=== PATIENT | male | born 1990 | race Caucasian/White ===

== ENCOUNTER 2024-08-12 04:06 | Emergency (ER) | payer SELFPAY ==
[2024-08-12] MEDS ORDERED: NA CHLORIDE 0.9% 1,000 ML ONE (04:28)
[2024-08-12] MEDS ORDERED: MORPHINE 4 MG/ML SYR ONE (04:28)
[2024-08-12] MEDS ORDERED: ONDANSETRON 4 MG/2 ML VIAL ONE (04:28)
[2024-08-12] MEDS ORDERED: KETOROLAC 30 MG/ML INJ ONE (04:28)
[2024-08-12 04:55] LABS: Absolute Basophils 0.1 K/uL (0-0.5); Absolute Eosinophils 0.3 K/uL (0-0.5); Absolute Monocytes 0.8 K/uL (0.1-1.3); Absolute Neutrophil 5.8 K/uL (1.8-8.0); Basophils % 1.1 % (0-1.3); Hematocrit 47.1 % (39.6-49.0); MCH 30.6 pg (27.0-35.0); MPV 8.2 fL (7.6-11.3); Monocytes % 7.5 % (3.3-12.3); Neutrophils % 52.4 % (41.7-73.7); Nucleated Red Blood Cells % 0.1 % (0-0); Platelets 445 thou/uL (152-406); RBC Red Blood Cell Count 5.23 M/uL (4.33-5.43); Red Cell Distribution Width 13.2 % (12.1-15.2)
[2024-08-12] MEDS ORDERED: methocarbamoL 750 MG TAB ONE (05:00)
[2024-08-12 05:20] LABS: Albumin 3.8 g/dL (3.4-5.0); Albumin/Globulin Ratio 0.9 (1.1-1.8); Anion Gap 5.9 mEq/L (5.0-15.0); Bilirubin Total 0.5 mg/dL (0.2-1.0); Globulin 4.3 g/dL (2.3-3.5); Potassium 3.9 mEq/L (3.5-5.1); Protein, Total 8.1 g/dL (6.4-8.2)
[2024-08-12 05:23] LABS: Blood Morphology Comment NOT SEEN (NOT SEEN); Platelet Estimate ADEQ; White Blood Cell Scan OK (OK)
[2024-08-12 05:37] LABS: Sqamous Epithelial None Seen /HPF (None Seen); Urine Bacteria None Seen /HPF (<20); Urine Bilirubin NEGATIVE (Negative); Urine Blood Negative (Negative); Urine Clarity Clear (Clear); Urine Color Light-Yellow (Yellow); Urine Culture Reflex Order NOT NEEDED; Urine Glucose NEGATIVE (Negative); Urine Ketones NEGATIVE (Negative); Urine Microscopic Reflex YN ORDER UMIC; Urine Mucus Slight /HPF (None Seen); Urine Nitrite NEGATIVE (Negative); Urine Protein NEGATIVE (Negative); Urine RBC None Seen /HPF (None Seen); Urine Urobilinogen Normal (Normal); Urine WBC <5 /HPF (<5)
--- NOTE | 2024-08-12 05:47 | RAD REPORT ---
EXAM DESCRIPTION: Abdomen Pelvis Wo Contrast CLINICAL HISTORY: back pain COMPARISON: December 14, 2023 TECHNIQUE: Contiguous axial sections of the abdomen and pelvis were obtained without intravenous contrast. This exam was performed according to our departmental dose-optimization program, which includes automated exposure control, adjustment of the mA and/or kV according to patient size and/or use of it erative reconstruction technique. FINDINGS: Lower Chest: The imaged lung bases are clear. No pleural or pericardial effusion. Organs: The liver, spleen, gallbladder, pancreas, and adrenal glands are normal. The kidneys are inta ct. 2 mm nonobstructing right renal mid pole calculus. GI/Bowel: There are no findings of small bowel obstruction. Nonspecific fecalization of the distal sm all bowel. This may reflect sequela of slow transit. No associated wall thickening or surrounding inflammatory change. No acute bowel wall inflammatory changes. The appendix is normal. Pelvis: The bladder is normal. The rectum is normal. No pelvic free fluid. No pelvic lymphadenopathy. Peritoneum/Retroperitoneum: No intraperitoneal free air. No intraperitoneal free fluid. No mesenteric or retroperitoneal lymphadenopathy. Bones/Soft Tissues: There are no suspicious-appearing lytic or blastic osseous lesions. IMPRESSION: 1. No acute intra-abdominal or pelvic abnormality. 2. Nonobstructing right renal calculus. 3. Fecalization of the distal small bowel. This may reflect sequela of slow transit. No features of small bowel obstruction. RECOMMENDATIONS: Electronically signed by: Gee Zarate MD 08/12/2024 05:40 AM [facility] Due to temporary technical issues with the [employer] reporting system, reports are being anila d by the in-house radiologist without review as a courtesy to ensure prompt reporting the interpreting radiologist is fully responsible for the content of the report. Transcribed Date/Time: 08/12/2024 5:47 AM
--- NOTE | 2024-08-12 06:33 | EDPHYS ---
Physician Documentation [facility] Name: Rohan Lenz Age: 33 yrs Sex: Male : 1990 Arrival Date: 08/12/2024 Time: 04:06 Bed 6 Private MD: ED Physician Henrry Schumacher HPI: 08/12 04:09 This 33 yrs old Male presents to ER via Unassigned with complaints of Back sp4 Pain. 08/13 01:08 Patient presents with 2 weeks of midthoracic back pain. sp4 Historical: - Allergies: 08/12 04:41 Codeine; bm8 - Home Meds: 04:41 Unable to obtain [Active]; bm8 - PMHx: 04:41 Seizure; bm8 - PSHx: 04:41 None; bm8 - Immunization history:: Adult Immunizations up to date. - Infectious Disease History:: Denies. - Social history:: Smoking status: Patient reports the use of cigarette tobacco products, denies chronic smoking, but will smoke occasionally. - Family history:: not pertinent. ROS: 08/13 01:08 Constitutional: Negative for fever, chills, and weight loss, positive for midthoracic sp4 back pain All other systems are negative, Exam: 01:08 Constitutional: This is a well developed, well nourished patient who is awake, alert, sp4 and in no acute distress. Head/Face: Normocephalic, atraumatic. Eyes: Pupils equal round and reactive to light, extra-ocular motions intact. Lids and lashes normal. Conjunctiva and sclera are not injected. Cornea within normal limits. Periorbital areas with no swelling, redness, or edema. ENT: Nares patent. No nasal discharge, no septal abnormalities noted. Tympanic membranes are normal and external auditory canals are clear. Oropharynx with no redness, swelling, or masses, exudates, or evidence of obstruction, uvula midline. Mucous membranes moist. Neck: Trachea midline, no thyromegaly or masses palpated, and no cervical lymphadenopathy. Supple, full range of motion without nuchal rigidity, or vertebral point tenderness. Chest/axilla: Normal chest wall appearance and motion. Nontender with no deformity. No lesions are appreciated. Cardiovascular: Regular rate and rhythm with a normal S1 and S2. No gallops, murmurs, or rubs. Normal PMI, no JVD. No pulse deficits. Respiratory: Lungs have equal breath sounds bilaterally, clear to auscultation and percussion. No rales, rhonchi or wheezes noted. No increased work of breathing, no retractions or nasal flaring. Abdomen/GI: Soft, with normal bowel sounds. No distension or tympany. No guarding or rebound. No evidence of tenderness throughout. Back: No spinal tenderness. No costovertebral tenderness. Skin: Warm, dry with normal turgor. Normal color with no rashes, no lesions, and no evidence of cellulitis. MS/ Extremity: Pulses equal, no cyanosis. Neurovascular intact. Full, normal range of motion. Neuro: Awake and alert, GCS 15, oriented to person, place, time, and situation. Cranial nerves II-XII grossly intact. Motor strength 5/5 in all extremities. Sensory grossly intact. Psych: Awake, alert, with orientation to person, place and time. Behavior, mood, and affect are within normal limits Vital Signs: 08/12 04:15 BP 138 / 89; Pulse 81; Resp 19; Temp 98.7; Pulse Ox 99% ; Weight 86.18 kg; Height 6 ft. bm8 0 in. ; Pain 6/10; 04:53 BP 122 / 86; Pulse 69; Resp 17; Temp 98.7; Pulse Ox 96% ; Pain 0/10; bm8 06:09 BP 124 / 78; Pulse 53; Resp 14; Temp 98.7; Pulse Ox 97% ; Pain 0/10; bm8 04:15 Body Mass Index 25.77 (86.18 kg, 182.88 cm) bm8 04:15 Pain Scale: Adult bm8 04:53 Pain Scale: Adult bm8 06:09 Pain Scale: Adult bm8 Tacos Coma Score: 04:53 Eye Response: spontaneous(4). Motor Response: obeys commands(6). Verbal Response: bm8 oriented(5). Total: 15. 06:09 Eye Response: spontaneous(4). Motor Response: obeys commands(6). Verbal Response: bm8 oriented(5). Total: . 08/13 01:08 Eye Response: spontaneous(4). Motor Response: obeys commands(6). Verbal Response: sp4 oriented(5). Total: 15. MDM: 08/12 04:35 Medical Screening Exam initiated sp4 06:11 ED course: COMPARISON: December 14, 2023 TECHNIQUE: Contiguous axial sections of the abdomen sp4 and pelvis were obtained without intravenous contrast. This exam was performed according to our departmental dose-optimization program, which includes automated exposure control, adjustment of the mA and/or kV according to patient size and/or use of iterative reconstruction technique. FINDINGS: Lower Chest: The imaged lung bases are clear. No pleural or pericardial effusion. Organs: The liver, spleen, gallbladder, pancreas, and adrenal glands are normal. The kidneys are intact. 2 mm nonobstructing right renal mid pole calculus. GI/Bowel: There are no findings of small bowel obstruction. Nonspecific fecalization of the distal small bowel. This may reflect sequela of slow transit. No associated wall thickening or surrounding inflammatory change. No acute bowel wall inflammatory changes. The appendix is normal. Pelvis: The bladder is normal. The rectum is normal. No pelvic free fluid. No pelvic lymphadenopathy. Peritoneum/Retroperitoneum: No intraperitoneal free air. No intraperitoneal free fluid. No mesenteric or retroperitoneal lymphadenopathy. Bones/Soft Tissues: There are no suspicious-appearing lytic or blastic osseous lesions. IMPRESSION: 1. No acute intra-abdominal or pelvic abnormality. 2. Nonobstructing right renal calculus. 3. Fecalization of the distal small bowel. This may reflect sequela of slow transit. No features of small bowel obstruction. . 08/13 01:08 Differential diagnosis: arthritis, Cholelithiasis Fatigue Fracture. Data reviewed: sp4 vital signs, nurses notes, lab test result(s), radiologic studies, CT scan. Consideration of Admission/Observation Escalation of care including admission/observation considered. ED course: Patient stable for discharge home CAT scan is negative.. 08/12 04:22 Order name: CBC with Diff; Complete Time: 06:12 sp4 08/12 04:22 Order name: CMP; Complete Time: 06:12 sp4 08/12 04:22 Order name: Lipase; Complete Time: 06:12 sp4 08/12 04:22 Order name: Urinalysis w/ reflexes; Complete Time: 06:12 sp4 08/12 05:01 Order name: CBC Smear Scan; Complete Time: 06:12 EDMS 08/12 04:22 Order name: CT Abd/Pelvis - Without Contrast sp4 08/12 04:22 Order name: IV Saline Lock; Complete Time: 04:36 sp4 08/12 04:22 Order name: Labs collected and sent; Complete Time: 04:36 sp4 Administered Medications: 08/12 04:35 Drug: TORadol - Ketorolac IVP 15 mg IVP once Route: IVP; Site: left antecubital; bm8 04:56 Follow up: Response: No adverse reaction bm8 04:35 Drug: Ondansetron IVP 4 mg IVP once; over 2 minutes Route: IVP; Site: left antecubital; bm8 04:56 Follow up: Response: No adverse reaction bm8 04:35 Drug: morphine IVP or IV 4 mg IVP once over 4 mins Route: IVP; Infused Over: 4 mins; bm8 Site: left antecubital; 04:56 Follow up: Response: No adverse reaction bm8 04:35 Drug: NS 0.9% IV 1000 ml IV at 1 bolus Per protocol; to be given as a bolus over 60 bm8 minutes Route: IV; Rate: 1 bolus; Site: left antecubital; 06:00 Follow up: Response: No adverse reaction; IV Status: Completed infusion; IV Intake: bm8 1000ml 04:56 Drug: Ketorolac IVP 15 mg IVP once Route: IVP; Site: left antecubital; bm8 04:57 Follow up: Response: No adverse reaction bm8 05:00 Drug: Methocarbamol PO 1500 mg PO once Route: PO; bm8 06:00 Follow up: Response: No adverse reaction bm8 Disposition Summary: 08/12/24 06:32 Discharge Ordered Notes: Location: Home sp4 Problem: new sp4 Symptoms: have improved sp4 Condition: Stable sp4 Diagnosis - Low back pain sp4 - Acute midthoracic back pain sp4 Followup: sp4 - With: Private Physician - When: 7 - 10 days - Reason: Recheck today's complaints Discharge Instructions: - Acute Back Pain, Adult sp4 - Discharge Summary Sheet dd2 Forms: - Patient Portal Instructions sp4 - Work release form dd2 Prescriptions: - Ibuprofen 800 mg Oral Tablet - take 1 tablet ORAL route every 8 hours As needed take with food; 30 tablet; sp4 Refills: 0, Product Selection Permitted - Tramadol 50 mg Oral tablet - take 1 tablet ORAL route every 8 hours as needed; 20 tablet; Refills: 0, sp4 Product Selection Permitted - methocarbamol 750 mg Oral tablet - take 2 tablets ORAL route every 6 hours for 2 days PRN back pain; 60 tablet; sp4 Refills: 0, Product Selection Permitted Signatures: Dispatcher [employer] EDMS Henrry Schumacher MD MD sp4 Miguel Houser RN RN bm8 Corrections: (The following items were deleted from the chart) 04:23 04:22 CBC+H.LAB.BRZ ordered. EDMS EDMS 04:23 04:22 COMPREHENSIVE METABOLIC PANEL+C.LAB.BRZ ordered. EDMS EDMS 04:23 04:22 LIPASE+C.LAB.BRZ ordered. EDMS EDMS 04:23 04:22 Urinalysis+U.LAB.BRZ ordered. EDMS EDMS 04:23 04:23 Abdomen Pelvis Wo Con+CT.RAD.BRZ ordered. EDMS EDMS 04:42 04:41 Allergies: No Known Allergies; bm8 bm8
--- NOTE | 2024-08-12 06:33 | ER ---
Nurse's Notes [facility] Name: Rohan Lenz Age: 33 yrs Sex: Male : 1990 Arrival Date: 08/12/2024 Time: 04:06 Bed 6 Private MD: Diagnosis: Low back pain;Acute midthoracic back pain Presentation: 08/12 04:15 Chief complaint: Patient states: I have been having mid level back for about a week and bm8 it just started out of nowhere. 04:15 Coronavirus screen: Vaccine status: Patient reports receiving the 2nd dose of the covid bm8 vaccine. At this time, the client does not indicate any symptoms associated with coronavirus-19. Ebola Screen: Patient negative for fever greater than or equal to 101.5 degrees Fahrenheit, and additional compatible Ebola Virus Disease symptoms Patient denies exposure to infectious person. Patient denies travel to an Ebola-affected area in the 21 days before illness onset. No symptoms or risks identified at this time. Initial Sepsis Screen: Does the patient meet any 2 criteria? No. Patient's initial sepsis screen is negative. Does the patient have a suspected source of infection? No. Patient's initial sepsis screen is negative. Risk Assessment: Do you want to hurt yourself or someone else? Patient reports no desire to harm self or others. Onset of symptoms was August 05, 2024. 04:15 Method Of Arrival: Ambulatory bm8 04:15 Acuity: ROSA 3 bm8 Triage Assessment: 04:15 General: Appears in no apparent distress. comfortable, Behavior is calm, cooperative, bm8 appropriate for age. 04:15 Pain: Complains of pain in mid back area Pain currently is 6 out of 10 on a pain scale. bm8 at worst was 9 out of 10 on a pain scale. EENT: No signs and/or symptoms were reported regarding the EENT system. Neuro: Level of Consciousness is awake, alert, obeys commands, Oriented to person, place, time, situation, Appropriate for age. Cardiovascular: Denies chest pain, Capillary refill < 3 seconds in bilateral fingers Patient's skin is warm and dry. Respiratory: Airway is patent Respiratory effort is even, unlabored, Respiratory pattern is regular, symmetrical. GI: No signs and/or symptoms were reported involving the gastrointestinal system. : No signs and/or symptoms were reported regarding the genitourinary system. Derm: No signs and/or symptoms reported regarding the dermatologic system. Musculoskeletal: Circulation, motion, and sensation intact. Capillary refill < 3 seconds, in bilateral fingers. Reports pain in mid back area. Historical: - Allergies: 04:41 Codeine; bm8 - Home Meds: 04:41 Unable to obtain [Active]; bm8 - PMHx: 04:41 Seizure; bm8 - PSHx: 04:41 None; bm8 - Immunization history:: Adult Immunizations up to date. - Infectious Disease History:: Denies. - Social history:: Smoking status: Patient reports the use of cigarette tobacco products, denies chronic smoking, but will smoke occasionally. - Family history:: not pertinent. Screenin:53 [facility] ED Fall Risk Assessment (Adult) History of falling in the last 3 months, bm8 including since admission No falls in past 3 months (0 pts) Confusion or Disorientation No (0 pts) Intoxicated or Sedated No (0 pts) Impaired Gait No (0 pts) Mobility Assist Device Used No (0 pt) Altered Elimination No (0 pt) Score/Fall Risk Level 0 - 2 = Low Risk Oriented to surroundings, Maintained a safe environment, Educated pt \T\ family on fall prevention, incl call for assistance when getting out of bed, Assessed \T\ reinforced patient's understanding of fall precautions, Hourly rounding (assess needs \T\ fall precautionary measures) done, Used ambulatory aids as needed (educated on \T\ assisted with), Used gait belt as appropriate. Abuse screen: Denies threats or abuse. Nutritional screening: No deficits noted. Tuberculosis screening: No symptoms or risk factors identified. Assessment: 04:52 Reassessment: see triage note. Neuro: No deficits noted. Level of Consciousness is bm8 awake, alert, obeys commands, Oriented to person, place, time, situation, Appropriate for age [employer] Supervisor are equal bilaterally Moves all extremities. Full function Gait is steady, Speech is normal, Facial symmetry appears normal, Pupils are PERRLA, Denies weakness headache. 06:09 Reassessment: Patient appears in no apparent distress at this time. Patient and/or bm8 family updated on plan of care and expected duration. Pain level reassessed. Patient is alert, oriented x 3, equal unlabored respirations, skin warm/dry/pink. Patient denies pain at this time. Patient states feeling better. Patient states symptoms have improved. Vital Signs: 04:15 BP 138 / 89; Pulse 81; Resp 19; Temp 98.7; Pulse Ox 99% ; Weight 86.18 kg; Height 6 ft. bm8 0 in. ; Pain 6/10; 04:53 BP 122 / 86; Pulse 69; Resp 17; Temp 98.7; Pulse Ox 96% ; Pain 0/10; bm8 06:09 BP 124 / 78; Pulse 53; Resp 14; Temp 98.7; Pulse Ox 97% ; Pain 0/10; bm8 04:15 Body Mass Index 25.77 (86.18 kg, 182.88 cm) bm8 04:15 Pain Scale: Adult bm8 04:53 Pain Scale: Adult bm8 06:09 Pain Scale: Adult bm8 Tacos Coma Score: 04:53 Eye Response: spontaneous(4). Motor Response: obeys commands(6). Verbal Response: bm8 oriented(5). Total: 15. 06:09 Eye Response: spontaneous(4). Motor Response: obeys commands(6). Verbal Response: bm8 oriented(5). Total: 15. 0117 01:08 Eye Response: spontaneous(4). Motor Response: obeys commands(6). Verbal Response: sp4 oriented(5). Total: 15. ED Course: 08/12 04:08 Patient arrived in ED. [email or web address] 04:09 Henrry Schumacher MD is Attending Physician. sp4 04:15 Arm band placed on right wrist. bm8 04:26 Miguel Houser, RN is Primary Nurse. bm8 04:41 Triage completed. bm8 04:44 CT Abd/Pelvis - Without Contrast In Process Unspecified. EDMS 04:44 No provider procedures requiring assistance completed. Initial lab(s) drawn, by yessneia driscoll sent to lab. EKG done, by ED staff, reviewed by Henrry Schumacher MD. Inserted saline lock: 20 gauge in left antecubital area, using aseptic technique. Blood collected. Flushed with 10 mL NS. Patient maintains SpO2 saturation greater than 95% on room air. 04:53 Patient has correct armband on for positive identification. Placed in gown. Bed in low bm8 position. Call light in reach. Side rails up X 1. Client placed on continuous cardiac and pulse oximetry monitoring. NIBP monitoring applied. Pulse ox on. NIBP on. Door closed. Noise minimized. Warm blanket given. Pillow given. 06:09 Provided Education on: post er care. bm8 06:09 IV discontinued, intact, bleeding controlled, No redness/swelling at site. Pressure bm8 dressing applied. Administered Medications: 04:35 Drug: TORadol - Ketorolac IVP 15 mg IVP once Route: IVP; Site: left antecubital; bm8 04:56 Follow up: Response: No adverse reaction bm8 04:35 Drug: Ondansetron IVP 4 mg IVP once; over 2 minutes Route: IVP; Site: left antecubital; bm8 04:56 Follow up: Response: No adverse reaction bm8 04:35 Drug: morphine IVP or IV 4 mg IVP once over 4 mins Route: IVP; Infused Over: 4 mins; bm8 Site: left antecubital; 04:56 Follow up: Response: No adverse reaction bm8 04:35 Drug: NS 0.9% IV 1000 ml IV at 1 bolus Per protocol; to be given as a bolus over 60 bm8 minutes Route: IV; Rate: 1 bolus; Site: left antecubital; 06:00 Follow up: Response: No adverse reaction; IV Status: Completed infusion; IV Intake: bm8 1000ml 04:56 Drug: Ketorolac IVP 15 mg IVP once Route: IVP; Site: left antecubital; bm8 04:57 Follow up: Response: No adverse reaction bm8 05:00 Drug: Methocarbamol PO 1500 mg PO once Route: PO; bm8 06:00 Follow up: Response: No adverse reaction bm8 Medication: 04:53 VIS not applicable for this client. bm8 Intake: 06:00 IV: 1000ml; Total: 1000ml. bm8 Outcome: 06:32 Discharge ordered by MD. guzman 06:46 Discharged to home ambulatory, bm8 06:46 Condition: stable 06:46 Discharge instructions given to patient, Instructed on discharge instructions, follow up and referral plans. no drinking with medication, no driving heavy equipment, medication usage, Demonstrated understanding of instructions, follow-up care, medications, Prescriptions given X 3, 06:50 Patient left the ED. bm8 Signatures: Dispatcher [employer] Franci Nguyễn [email or web address] Henrry Schumacher MD MD sp4 Miguel Houser RN RN bm8 Corrections: (The following items were deleted from the chart) 04:42 04:41 Allergies: No Known Allergies; bm8 bm8
[2024-08-13 02:45] VITALS: BP 124/78; TEMP 98.7; O2SAT 97
== END 2024-08-12 06:50 | disposition home or self-care (01) ==
LOC: ER 04:06
DX: M54.50 Low back pain, unspecified (principal); M54.9 Dorsalgia, unspecified
CPT/HCPCS: 36415; 74176; 80053; 81001; 83690; 85025; 96361; 96374; 96375; 99285; J2405; J7030

== ENCOUNTER 2025-03-15 16:47 | Emergency (ER) | payer SELFPAY ==
[2025-03-15] MEDS ORDERED: LORazepam 2 MG/ML VIAL ONE (17:24)
[2025-03-15] MEDS ORDERED: KETOROLAC 30 MG/ML INJ ONE (17:25)
[2025-03-15] MEDS ORDERED: ONDANSETRON 4 MG/2 ML VIAL ONE (17:25)
[2025-03-15] MEDS ORDERED: NA CHLORIDE 0.9% 1,000 ML ONE (17:25)
[2025-03-15 17:35] LABS: Absolute Lymphocytes (CBC) 3.4 K/uL (0.7-4.9); Hematocrit 44.4 % (39.6-49.0); Hemoglobin 15.5 g/dL (13.6-17.9); MCH 31.0 pg (27.0-35.0); MCHC 34.8 g/dL (32.0-36.0); MCV 88.9 fL (80-100); MPV 7.9 fL (7.6-11.3); Nucleated RBC Absolute Count 0.0 (0-0); Nucleated Red Blood Cells % 0.1 % (0-0); RBC Red Blood Cell Count 4.99 M/uL (4.33-5.43); White Blood Count 8.30 thou/uL (4.3-10.9)
[2025-03-15 17:55] LABS: Anion Gap 7.4 mEq/L (5.0-15.0); BUN Blood Urea Nitrogen 13.0 mg/dL (7-18); Glucose Level 125.0 mg/dL (74-106); Potassium 3.4 mEq/L (3.5-5.1); Troponin High Sensitivity 4.8 pg/mL (<58.9)
--- NOTE | 2025-03-15 18:32 | RAD REPORT ---
EXAM: CT brain without contrast HISTORY: SEIZURE COMPARISON: None TECHNIQUE: Multiple contiguous axial images were obtained and a CT of the brain without contrast. Sag ittal and coronal reformats were performed. One or more of the following dose reduction techniques were used: Automated exposure control, adjust ment of the mA and/or kV according to patient size, and/or iterative reconstruction. FINDINGS: No evidence of hydrocephalus, intracranial hemorrhage, or extra-axial fluid collection. There is a large fatty mass in the left temporal lobe with associated calcifications measuring 2.6 c m. There is adjacent hypodensity measuring 19 mm. No evidence of midline shift or areas of brain edema. The calvarium is intact. The visualized paranasal sinuses and mastoid air cells are essentially clear . IMPRESSION: No evidence of acute intracranial abnormality. Fatty mass with calcifications and adjacent intraparenchymal hypodensity in the left temporal lobe. T his is presumed to to be possible seizure focus. Recommend neurology consultation on a nonemergent basis. MRI brain epilepsy protocol may be considered for follow-up imaging on a nonemergent basis.
--- NOTE | 2025-03-15 19:07 | ER ---
Nurse's Notes [facility] Name: Rohan Lenz Age: 34 yrs Sex: Male : 1990 Arrival Date: 03/15/2025 Time: 16:47 Bed 14 Private MD: Diagnosis: Localization-related (focal) (partial) idiopathic epilepsy and epileptic syndromes with seizures of localized onset Presentation: 03/15 17:02 Chief complaint: Patient states: HE HAD A SEIZURE AROUND 1PM. SPOUSE REPORTS LASTED 5 dd2 MINS. PT STATES HX OF EPILEPSY, OFF MEDS X5 YEARS, SMOKES CANNABIS INSTEAD. PT REPORTS HEADACHE. Coronavirus screen: At this time, the client does not indicate any symptoms associated with coronavirus-19. Ebola Screen: No symptoms or risks identified at this time. Initial Sepsis Screen: Does the patient meet any 2 criteria? No. Patient's initial sepsis screen is negative. Does the patient have a suspected source of infection? No. Patient's initial sepsis screen is negative. Risk Assessment: Do you want to hurt yourself or someone else? Patient reports no desire to harm self or others. Onset of symptoms was March 15, 2025 at 13:00. 17:02 Method Of Arrival: Ambulatory dd2 17:02 Acuity: ROSA 3 dd2 Triage Assessment: 17:04 General: Appears in no apparent distress. uncomfortable, Behavior is calm, cooperative, dd2 appropriate for age. Pain: Complains of pain in HEAD. Neuro: Level of Consciousness is awake, alert, obeys commands, Oriented to person, place, time, situation, Appropriate for age Reports headache Seizure activity reported prior to arrival. Seizure lasted approximately 5 minutes. Historical: - Allergies: 17:04 Codeine; dd2 - PMHx: 17:04 Seizure; dd2 - PSHx: 17:04 None; dd2 - Immunization history:: Adult Immunizations unknown. - Infectious Disease History:: Denies. - Social history:: Smoking status: Reported history of juuling and/or vaping. Patient uses street drugs, marijuana. Screenin:11 [facility] ED Fall Risk Assessment (Adult) History of falling in the last 3 months, lg3 including since admission No falls in past 3 months (0 pts) Confusion or Disorientation No (0 pts) Intoxicated or Sedated No (0 pts) Impaired Gait No (0 pts) Mobility Assist Device Used No (0 pt) Altered Elimination No (0 pt) Score/Fall Risk Level 0 - 2 = Low Risk Oriented to surroundings, Maintained a safe environment, Educated pt \T\ family on fall prevention, incl call for assistance when getting out of bed, Assessed \T\ reinforced patient's understanding of fall precautions. Abuse screen: Denies threats or abuse. Denies injuries from another. Nutritional screening: No deficits noted. Tuberculosis screening: No symptoms or risk factors identified. Assessment: 17:15 General: Appears in no apparent distress. comfortable, Behavior is calm, cooperative, jb4 appropriate for age. Pain: Complains of pain in headache Pain does not radiate. Pain currently is 5 out of 10 on a pain scale. Neuro: Level of Consciousness is awake, alert, obeys commands, Oriented to person, place, time, situation. Cardiovascular: Patient's skin is warm and dry. Respiratory: Airway is patent Respiratory effort is even, unlabored, Respiratory pattern is regular, symmetrical. Derm: Skin is intact, Skin is pink, warm \T\ dry. Musculoskeletal: Circulation, motion, and sensation intact. Range of motion: intact in all extremities. 18:15 Reassessment: Patient appears in no apparent distress at this time. Patient and/or jb4 family updated on plan of care and expected duration. Pain level reassessed. Patient is alert, oriented x 3, equal unlabored respirations, skin warm/dry/pink. PT to CT. 19:22 General: Appears in no apparent distress. comfortable, Behavior is calm, cooperative. lg3 Pain: Denies pain. Neuro: No deficits noted. [place] Agitation-Sedation Scale (RASS): 0 - Alert and Calm Level of Consciousness is awake, alert, obeys commands, Oriented to person, place, time, situation. Respiratory: No deficits noted. Airway is patent Respiratory effort is even, unlabored, Respiratory pattern is regular, symmetrical. Vital Signs: 17:02 BP 130 / 90; Pulse 70; Resp 17; Temp 97.9; Pulse Ox 98% on R/A; Weight 86.18 kg; Height dd2 6 ft. 0 in. ; Pain 5/10; 18:16 BP 108 / 68; Pulse 55; Resp 16; Pulse Ox 97% on R/A; jb4 19:11 BP 100 / 66; Pulse 59; Resp 15 S; Pulse Ox 98% on R/A; lg3 17:02 Body Mass Index 25.77 (86.18 kg, 182.88 cm) dd2 17:02 Pain Scale: Adult dd2 [place] Coma Score: 17:04 Eye Response: spontaneous(4). Motor Response: obeys commands(6). Verbal Response: dd2 oriented(5). Total: 15. ED Course: 16:49 Patient arrived in ED. cj3 16:50 Kaitlyn Ace MD is Attending Physician. sp3 17:04 Triage completed. dd2 17:04 Arm band placed on right wrist. dd2 17:10 Alan Shine, SNOUT PULLER-C is PHCP. dr5 17:30 Inserted saline lock: 18 gauge in right antecubital area, using aseptic technique. ts3 Blood collected. Flushed with 10 mL NS. 17:31 Initial lab(s) drawn, by stucco laborer, sent to lab. ts3 17:31 EKG done, by technical services assistant. ts3 18:12 Homar Bender, RN is Primary Nurse. jb4 18:23 CT Head Brain wo Cont In Process Unspecified. EDMS 19:06 Clem Castro MD is Referral Physician. dr5 19:11 Patient has correct armband on for positive identification. Bed in low position. Client lg3 placed on continuous cardiac and pulse oximetry monitoring. NIBP monitoring applied. Family accompanied patient. 19:11 No provider procedures requiring assistance completed. IV discontinued, intact, lg3 bleeding controlled, No redness/swelling at site. Pressure dressing applied. Administered Medications: 17:32 Drug: Ativan IVP 1 mg IVP once Route: IVP; Site: right antecubital; af3 19:13 Follow up: Response: No adverse reaction; RASS: Drowsy (-1) lg3 17:32 Drug: Ketorolac IVP 15 mg IVP once Route: IVP; Site: right antecubital; af3 19:13 Follow up: Response: No adverse reaction lg3 17:32 Drug: Ondansetron IVP 4 mg IVP once; over 2 minutes Route: IVP; Site: right antecubital;af3 19:13 Follow up: Response: No adverse reaction lg3 17:33 Drug: NS 0.9% IV 1000 ml IV at 1000 ml once; to be given as a bolus over 60 minutes af3 Route: IV; Rate: 1000 ml; Site: right antecubital; 19:13 Follow up: Response: No adverse reaction; IV Status: Completed infusion; IV Intake: lg3 1000ml Medication: 19:11 VIS not applicable for this client. lg3 Intake: 19:13 IV: 1000ml; Total: 1000ml. lg3 Outcome: 19:06 Discharge ordered by . dr5 19:22 Discharged to home via wheelchair, with significant other, lg3 19:22 Condition: stable 19:22 Discharge instructions given to patient, Instructed on discharge instructions, follow up and referral plans. Demonstrated understanding of instructions, follow-up care, 19:22 Patient left the ED. lg3 Signatures: Dispatcher [employer] EDMS Homar Bender RN TAMIKO jb4 Mikaela Bocanegra RN RN lg3 Kaitlyn Ace MD MD sp3 Bria Garcia RN RN af3 BALTA MARTINEZ RN RN dd2 Alan Shine, SNOUT PULLER-C SNOUT PULLER-Cdr5 Fide Haines cj3 Kim Oshea ts3 Corrections: (The following items were deleted from the chart) 18:16 18:13 General: Appears in no apparent distress. comfortable, Behavior is calm, jb4 cooperative, appropriate for age, jb4 18:16 18:13 Pain: Complains of pain in headache Pain does not radiate. Pain currently is 5 jb4 out of 10 on a pain scale. jb4 18:16 18:13 Neuro: Level of Consciousness is awake, alert, obeys commands, Oriented to jb4 person, place, time, situation, jb4 18:16 18:13 Cardiovascular: Patient's skin is warm and dry. jb4 jb4 18:16 18:13 Respiratory: Airway is patent Respiratory effort is even, unlabored, Respiratory jb4 pattern is regular, symmetrical, jb4 18:16 18:13 Derm: Skin is intact, Skin is pink, warm \T\ dry. jb4 jb4 18:16 18:13 Musculoskeletal: Circulation, motion, and sensation intact. Range of motion: jb4 intact in all extremities, jb4
--- NOTE | 2025-03-15 19:07 | EDPHYS ---
Physician Documentation [facility] Name: Rohan Lenz Age: 34 yrs Sex: Male : 1990 Arrival Date: 03/15/2025 Time: 16:47 Bed 14 Private MD: ED Physician Kaitlyn Ace HPI: 03/15 19:44 This 34 yrs old Male presents to ER via Ambulatory with complaints of Seizure.dr5 19:44 The patient presents after having a single isolated seizure, that lasted 35 second(s). dr5 Character of seizure(s): Loss of consciousness: the patient experienced loss of consciousness, Motor activity: focal activity, Incontinence: none. Seizure onset: just prior to arrival. 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 Patient reports that he is not on antiseizure medication such as Depakote or Tegretol as they have not helped him. Patient reports many marijuana which causes him to have approximately 1 seizure a month. Patient recently moved to [facility] and does not have a neurologist yet. Patient does have history of brain lesions which have been the cause of his seizures in the past. Upon arrival patient complains of generalized pain and headache.. Historical: - Allergies: 17:04 Codeine; dd2 - PMHx: 17:04 Seizure; dd2 - PSHx: 17:04 None; dd2 - Immunization history:: Adult Immunizations unknown. - Infectious Disease History:: Denies. - Social history:: Smoking status: Reported history of juuling and/or vaping. Patient uses street drugs, marijuana. ROS: 19:44 Constitutional: as per hpi dr5 Exam: 19:44 Constitutional: This is a well developed, well nourished patient who is awake, alert, dr5 and in no acute distress. Head/Face: Normocephalic, atraumatic. Eyes: Pupils equal round and reactive to light, extra-ocular motions intact. Lids and lashes normal. Conjunctiva and sclera are non-icteric and not injected. Cornea within normal limits. Periorbital areas with no swelling, redness, or edema. Neck: Trachea midline, no thyromegaly or masses palpated, and no cervical lymphadenopathy. Supple, full range of motion without nuchal rigidity, or vertebral point tenderness. No Meningismus. Chest/axilla: Normal chest wall appearance and motion. Nontender with no deformity. No lesions are appreciated. Cardiovascular: Regular rate and rhythm with a normal S1 and S2. Normal PMI, no JVD. No pulse deficits. Respiratory: Lungs have equal breath sounds bilaterally, clear to auscultation. No rales, rhonchi or wheezes noted. No increased work of breathing, no retractions or nasal flaring. Abdomen/GI: Soft, non-tender, non-distended Back: No spinal tenderness. No costovertebral tenderness. Full range of motion. Skin: Warm, dry with normal turgor. Normal color with no rashes, no lesions, and no evidence of cellulitis. MS/ Extremity: Pulses equal, no cyanosis. Neurovascular intact. Full, normal range of motion. Neuro: Awake and alert, GCS 15, oriented to person, place, time, and situation. Cranial nerves II-XII grossly intact. Motor strength 5/5 in all extremities. Sensory grossly intact. Cerebellar exam normal. Normal gait. Vital Signs: 17:02 BP 130 / 90; Pulse 70; Resp 17; Temp 97.9; Pulse Ox 98% on R/A; Weight 86.18 kg; Height dd2 6 ft. 0 in. ; Pain 5/10; 18:16 BP 108 / 68; Pulse 55; Resp 16; Pulse Ox 97% on R/A; jb4 19:11 BP 100 / 66; Pulse 59; Resp 15 S; Pulse Ox 98% on R/A; lg3 17:02 Body Mass Index 25.77 (86.18 kg, 182.88 cm) dd2 17:02 Pain Scale: Adult dd2 [place] Coma Score: 17:04 Eye Response: spontaneous(4). Motor Response: obeys commands(6). Verbal Response: dd2 oriented(5). Total: 15. MDM: 17:12 Medical Screening Exam initiated dr5 19:44 Differential diagnosis: cardiac arrhythmia, seizure, Epilepsy. Data reviewed: vital dr5 signs, nurses notes, lab test result(s), CBC, white blood cell count, hemoglobin, hematocrit, platelets, electrolytes, sodium, potassium, chloride, serum bicarbonate, BUN, creatinine, serum glucose, radiologic studies, CT scan. Consideration of Admission/Observation Escalation of care including admission/observation considered. Escalation considered patient found to be in status epilepticus or having a seizure in the ER.. I considered the following discharge prescriptions or medication management in the emergency department I discussed and recommended Over The Counter medications, Medications were administered in the Emergency Department. See MAR. Care significantly affected by the following chronic conditions: Epilepsy. Care significantly affected by the following Social Determinants of Health: Poor access to healthcare and/or lack of insurance, Poor access to transportation, Problems related to employment. Counseling: I had a detailed discussion with the patient and/or guardian regarding the historical points, exam findings, and any diagnostic results supporting the discharge/admit diagnosis, the presence of at least one elevated blood pressure reading (>120/80) during this emergency department visit, lab results, radiology results, the need for outpatient follow up, for definitive care, a family practitioner, a neurologist, to return to the emergency department if symptoms worsen or persist or if there are any questions or concerns that arise at home. Medication response: Patient's pain has resolved and he is feeling much better.. Response to treatment: the patient's symptoms have resolved after treatment, the patient's condition has returned to base line, the patient is now symptom free. Special discussion: I have referred the patient to see his PCP for further evaluation of high blood pressure. I discussed with the patient/guardian in detail that at this point there is no indication for admission to the hospital. It is understood, however, that if the symptoms persist or worsen the patient needs to return immediately for re-evaluation. Based on the history and exam findings, there is no indication for further emergent testing or inpatient evaluation. I discussed with the patient/guardian the need to see the neurologist for further evaluation of the symptoms. ED course: Will have patient follow with Dr. Castro this week for further management. Labs and CT scan results were given to patient. Patient reports he is feel much better and not any pain. All questions answered. Strict ER precautions given.. 03/15 17:12 Order name: Basic Metabolic Panel; Complete Time: 17:55 dr5 03/15 17:12 Order name: CBC with Diff; Complete Time: 17:55 dr5 03/15 17:12 Order name: Troponin HS; Complete Time: 17:55 03/15 17:12 Order name: CT Head Brain wo Cont; Complete Time: 18:39 dr5 03/15 17:12 Order name: EKG; Complete Time: 17: dr5 03/15 17:12 Order name: Cardiac monitoring; Complete Time: : dr5 03/15 17:12 Order name: EKG - Nurse/Tech; Complete Time: : dr5 03/15 17:12 Order name: IV Saline Lock; Complete Time: 17: dr5 03/15 17:12 Order name: Labs collected and sent; Complete Time: : dr5 03/15 17:12 Order name: O2 Per Protocol; Complete Time: dr5 03/15 17:12 Order name: O2 Sat Monitoring; Complete Time: : dr5 EC: Rate is 68 beats/min. Rhythm is regular. QRS [place] is Normal. ID interval is normal at dr5 160 msec. QRS interval is normal at 90 msec. QT interval is normal at 386 msec. Clinical impression: Normal ECG and No evidence of ischemia. Administered Medications: 17:32 Drug: Ativan IVP 1 mg IVP once Route: IVP; Site: right antecubital; af3 19:13 Follow up: Response: No adverse reaction; RASS: Drowsy (-1) lg3 17:32 Drug: Ketorolac IVP 15 mg IVP once Route: IVP; Site: right antecubital; af3 19:13 Follow up: Response: No adverse reaction lg3 17:32 Drug: Ondansetron IVP 4 mg IVP once; over 2 minutes Route: IVP; Site: right antecubital;af3 19:13 Follow up: Response: No adverse reaction lg3 17:33 Drug: NS 0.9% IV 1000 ml IV at 1000 ml once; to be given as a bolus over 60 minutes af3 Route: IV; Rate: 1000 ml; Site: right antecubital; 19:13 Follow up: Response: No adverse reaction; IV Status: Completed infusion; IV Intake: lg3 1000ml Disposition Summary: 03/15/25 19:06 Discharge Ordered Notes: Location: Home dr5 Condition: Stable dr5 Diagnosis - Localization-related (focal) (partial) idiopathic epilepsy and epileptic syndromes dr5 with seizures of localized onset Followup: dr5 - With: Emergency Department - When: As needed - Reason: Worsening of condition Followup: dr5 - With: Clem Castro MD - When: 1 - 2 days - Reason: Recheck today's complaints, Continuance of care, Re-evaluation by your physician Discharge Instructions: - Discharge Summary Sheet dr5 - Seizure, Adult dr5 Forms: - Work release form dr5 - Medication Reconciliation Form dr5 - Patient Portal Instructions dr5 - Leadership Thank You Letter dr5 Signatures: Dispatcher [employer] Bria Waddell RN RN af3 BALTA MARTINEZ RN RN dd2 Alan Shine, DOWEL SETTING MACHINE OPERATOR-C DOWEL SETTING MACHINE OPERATOR-Cdr5 Mikaela Bocanegra RN lg3
[2025-03-16 00:28] VITALS: TEMP 97.9
[2025-03-16 00:32] VITALS: BP 100/66; O2SAT 98
== END 2025-03-15 19:22 | disposition home or self-care (01) ==
LOC: ER 16:47
DX: G40.009 Localization-related (focal) (partial) idiopathic epilepsy and epileptic syndromes with seizures of localized onset, not intractable, without status epilepticus (principal)
CPT/HCPCS: 36415; 70450; 80048; 84484; 85025; 93005; 96361; 96374; 96375; 99284; J2405; J7030